=== PATIENT | male | born 1985 | race Two or more races ===

== ENCOUNTER 2025-01-16 10:15 | Day surgery (SDC) | payer OTHER, BC, SELFPAY ==
--- NOTE | 2025-01-13 06:36 | EKG_ITS ---
[facility] Test Date: 2025-01-13 Pat Name: DEMETRICE MUÑIZ Department: Room: - Gender: Male [employer] Teacher: GUERLINE : 1985 Requested By: Melquiades Amaya Order Number: [id number] Reading MD: Melquiades Amaya Measurements Intervals [place] Rate: 61 P: 3 ME: 159 QRS: 27 QRSD: 93 T: 47 QT: 381 QTc: 386 Interpretive Statements SINUS RHYTHM No previous ECG available for comparison /[id number]/[email or web address]/[id number]
[2025-01-13 08:57] VITALS: BMI 30.2
[2025-01-13 11:16] LABS: Alanine Aminotransferase 29 U/L (10-49); Albumin, Serum 4.4 gm/dL (3.5-5.0); Albumin/Globulin Ratio 1.7 (1.2-2.2); Alkaline Phosphatase 63 U/L (46-116); Anion Gap 8 (7-16); Aspartate Amino Transferase 22 U/L (0-34); BUN/Creatinine Ratio 14 Ratio (12-20); Bilirubin,Total 0.6 mg/dL (0.3-1.2); Blood Urea Nitrogen 10 mg/dL (9-23); Calcium 9.4 mg/dL (8.3-10.6); Calcium (Corrected) 9.4 mg/dL (8.5-10.1); Carbon Dioxide 28.5 mMol/L (20.0-31.0); Chloride 103 mMol/L (98-107); Creatinine (Component) 0.7 mg/dL (0.6-1.3); Estimated Creatinine Clearance 126.9 mL/min (>60); Globulin 2.6 gm/dL (2.3-3.5); Glucose 101 mg/dL (74-106); Osmolality,Calculated 276 (275-295); Potassium 4.3 mMol/L (3.4-5.1); Sodium 139 mMol/L (136-145); eGFR > 60 See Note
--- NOTE | 2025-01-15 14:42 | SUR.PREOP ---
Cardiac records reviewed with Dr Ballard.
[2025-01-16] VITALS (8 sets, daily range): BP systolic 116–150; BP diastolic 91–104; PULSE 72–93; RESP 12–18; TEMP 36.1–36.6; O2SAT 95–99; BMI 28.7
--- NOTE | 2025-01-16 14:05 | ESOP_ITS ---
Date of Procedure 01/16/25 Pre Op Diagnosis Nasal septal deviation with obstruction Bilateral inferior turbinate hypertrophy Chronic right maxillary sinusitis Post Op Diagnosis Nasal septal deviation with obstruction Bilateral inferior turbinate hypertrophy Chronic right maxillary sinusitis Procedure Intranasal septoplasty Bilateral submucous resection inferior turbinates Right endoscopic maxillary antrostomy Findings Grade 3 septal deviation to the left with enlarged inferior turbinates and stenotic right maxillary sinus ostia Procedure Description Indications: This is a 39-year-old male with chronic nasal congestion and infection. Treatment options were discussed as well as surgical risks including bleeding infection nasal deformity and potential need for further surgery. He understood this as well as anticipated outcomes and wished to proceed. Patient was transferred to the operative suite where he was anesthetized and int ubated sterilely draped. Timeout was performed. The nasal septum as well as the inferior turbinates and right uncinate process were injected with 1% lidocaine with 1 100,000 dilution epinephrine. Approximately 7 cc total were used. The 0 degree scope was brought into the field and the middle meatus is visualized. The uncinate process was retracted forward and the curved suction used to cannulate the maxillary ostia and that was expanded with the suction. No purulence or polyps were visualized. Then went back to direct visualization. A caudal rim incision was made on the left side of the septum mucosal flap was elevated off the cartilage and bone. Perpendicular plate was from the quadrangular cartilage with the freer elevator. Mucosal flap was then elevated off the right side of the perpendicular plate. Double-action scissors were used to incise the perpendicular plate and bony fragments removed with a Anais forceps. The vomer was still tipped to the left side and this was fractured over with the caudal elevator and returning it to near midline. Mucosal flaps were then reapproximated to the underlying septal cartilage with 4-0 plain gut and this was used to close the rim incision as well. Left inferior turbinate was reduced in submucosal plane with a 2.9 mm turbinate shaver blade. This was used to reduce the right inferior turbinate as well. Entry sites were cauterized with suction cautery. Patient was then awakened and taken the recovery room in stable condition Anesthesia GETA Pathology / specimen None Estimated Blood Loss 20 Surgeon Melquiades Jolly DO Surgical Staff Operation Date: 01/16/25 14:45 Case Staff Anesthesiologist: Nagi Chowdhury
== END 2025-01-16 15:35 | disposition home or self-care (01) ==
PROVIDERS: PCP Family Medicine; Referring Provider Otolaryngology; Visit Provider Otolaryngology
PROC: (CPT 30520; principal; 2025-01-16 14:30)
DX: J34.2 Deviated nasal septum (principal); J32.0 Chronic maxillary sinusitis; J34.3 Hypertrophy of nasal turbinates; Z01.810 Encounter for preprocedural cardiovascular examination
CPT/HCPCS: 30520; 30140; 31256; 36415; 80053; 93005; A4217; A4649; J0131; J0690; J1100; J2250; J2405; J2704; J3010; J3490; J7040; A9270